=== PATIENT | female | born 1965 | race Caucasian/White ===

== ENCOUNTER 2017-02-24 08:31 | Emergency (ER) | payer OTHER ==
--- NOTE | ~2017-02-24 | ER ---
[facility] AGE[facility] 51 Y [address] ROOM: [place] [address] LOCATION: ED ADMIT DATE: 02/24/2017 ER/Outpatient Report DISCHARGE DATE: 02/24/2017 FAMILY PHYSICIAN: Elaine Ronquillo APRN ATTENDING PHYSICIAN: Suzi Choudhury Time of Arrival: 0831 hours. Time of Evaluation/Seen: 0839 hours. IDENTIFICATION: A 51-year-old female. CHIEF COMPLAINT: Rapid heart rate. HISTORY OF PRESENT ILLNESS: The patient complains of a rapid heart rate which sometimes happens to her and she just takes an extra dose of her metoprolol, but today she had a rapid heart rate around 6:30 a.m., after she woke up and then had "body numbness." She said her arms and legs felt numb and she was a little bit dizzy. No chest pain. Some shortness of breath. No cough. No other problems or concerns. The rapid heart rate has relieved, but she says she just does not feel quite right. She has been under lot of stress for the last year and a half. PAST MEDICAL HISTORY: ALLERGIES: NO KNOWN DRUG ALLERGIES. CURRENT MEDICATIONS: 1. Metoprolol. 2. Lasix. 3. Synthroid. MEDICAL PROBLEMS: 1. Rapid heart rate. 2. Hypothyroidism. PAST SURGICAL HISTORY: Prior Surgeries: 1. Varicose vein surgery. 2. Bilateral knee surgery. 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 Tobacco use, 1 pack PATIENT'S NAME: [facility]IK [facility] Lucien [facility] AGE: 51 Y [address] ROOM: [place] [address] LOCATION: [facility] ADMIT DATE: 02/24/2017 ER/Outpatient Report DISCHARGE DATE: 02/24/2017 FAMILY PHYSICIAN: Elaine Ronquillo APRN ATTENDING PHYSICIAN: Suzi Choudhury per day. Alcohol use, 1 to 6 beers on 2 to 3 nights a week. Drug use, denies. The patient is . Her is paraplegic. FAMILY HISTORY: No family history of premature coronary artery disease. REVIEW OF SYSTEMS: All systems reviewed and negative other than what is noted in the HPI. She is no longer having periods. PHYSICAL EXAMINATION: VITAL SIGNS: Weight 56.8 kg. Blood pressure 133/97, pulse 99, respiratory rate is 20, temperature 98.0, and saturations 97% on room air. GENERAL: A 51-year-old female, in no acute distress, but appears somewhat anxious. HEENT: Head; normocephalic and atraumatic. Ears; TMs translucent in both ears. Eyes; pupils equal and reactive to light and accommodation. Extraocular movements intact. Nose; mucosa pink. No lesions or drainage. Mouth; no lesions. Pharynx, benign. NECK: Supple. No lymphadenopathy. LUNGS: Clear to auscultation. Breath sounds are equal. HEART: Regular rate and rhythm. No murmur, rub, or gallop. ABDOMEN: Bowel sounds present. Soft, nondistended, and nontender. SKIN: [place], warm, and dry. No lesions or rashes noted. NEUROLOGIC: The patient is alert and oriented x4. Cranial nerves 2 through 12 grossly intact. Motor strength 5/5 throughout. Sensation is intact to light touch. EXTREMITIES: No lower extremity edema. No calf tenderness. LABORATORY DATA AND IMAGING STUDIES: A 12-lead EKG at 0836 hours was normal sinus rhythm, but had some limb leads reversed. We repeated at 0839 hours, normal sinus rhythm at 87 beats per minute. No acute ST elevation or depression. Repeat EKG at 1033 hours, sinus bradycardia at 59 beats per minute. No acute ST elevation or depression. Chest x-ray, one view, no acute process. Pending Radiology over-read. Head CT without contrast, negative per Radiology. Chemistry panel, unremarkable. Magnesium, alcohol level, and cardiac enzymes are negative. TSH is slightly elevated at 4.730. The patient states she just had her thyroid checked in the clinic, and no adjustments were made on her Synthroid, and she is not certain of her dose. CBC is unremarkable. D-dimer is normal. Second set of cardiac enzymes at 90 minutes are negative. IMPRESSION: Palpitations. PATIENT'S NAME: MILENA MONTANEZ [facility] AGE: 51 Y [address] ROOM: [place] [address] LOCATION: ED ADMIT DATE: 02/24/2017 ER/Outpatient Report DISCHARGE DATE: 02/24/2017 FAMILY PHYSICIAN: Elaine Ronquillo APRN ATTENDING PHYSICIAN: Suzi Choudhury PLAN: 1. Recommended a 48-hour Holter monitor. The patient refused. She will go home to rest, fluids. No exertion. No caffeine, and follow up in [facility] on Sunday. 2. Numbness may be secondary to hyperventilation. The patient's neurological exam is normal on exam and head CT is negative. We did check orthostatic blood pressures which were normal. No orthostatic hypotension. 3. Elevated TSH. I told the patient to follow up with Elaine Ronquillo APRN regarding any necessary adjustment to her Synthroid. The patient understands and agrees, and all questions have been answered. MD KINZA SINGH/zoel /[id number] d: 02/24/17 1739 t: 03/05/17 0757, OUTPATIENT REPORT
[2017-02-24 09:04] LABS: BASOPHIL # 0.1 K/uL (0.0-0.2); BASOPHIL % 1.2 %; EOSINOPHIL # 0.2 K/uL (0.0-0.5); EOSINOPHIL % 2.3 %; HEMATOCRIT 42.6 % (33.0-46.0); HEMOGLOBIN 15.2 g/dL (10.0-15.0); IMMATURE GRANULOCYTE % 0.3 %; LYMPHOCYTE # 2.3 K/uL (0.8-4.0); LYMPHOCYTE % 22.5 %; MCH 35.1 pg (27.0-34.0); MCHC 35.7 gm/dL (32.0-36.5); MCV 98.4 fl (83.0-98.0); MONOCYTE # 0.5 K/uL (0.0-1.0); MONOCYTE % 4.6 %; MPV 9.2 fl (9.4-12.4); NEUTROPHIL # (ANC) 7.2 K/uL (1.8-7.8); NEUTROPHIL % 69.1 %; NRBC % 0 /100WBC (0-0.00); PLATELET COUNT 315 K/uL (150-450); RBC 4.33 M/uL (3.50-5.50); RDW-CV 12.9 % (11.9-14.6); WBC 10.4 K/uL (4.0-11.0)
[2017-02-24 09:13] LABS: INR - (THERAPEUTIC) 0.92 (0.92-1.07); PROTIME 9.7 SECONDS (9.8-11.4); PTT 27 SECONDS (25-32)
[2017-02-24 09:24] LABS: ALBUMIN 4.1 gm/dL (3.5-5.0); ALK PHOS 67 IU/L (33-138); ALT 29 IU/L (12-78); ANION GAP 12.8 (10.0-19.0); AST 24 IU/L (10-40); BLOOD UREA NITROGEN 21 mg/dL (6-24); CALCIUM 8.7 mg/dL (8.5-10.5); CHLORIDE 104 mMol/L (96-110); CO2 27 mMol/L (22-32); CPK 125 IU/L (21-215); CREATININE 1.1 mg/dL (0.5-1.1); MAGNESIUM 2.2 mg/dL (1.8-2.6); POTASSIUM 3.8 mMol/L (3.7-5.1); SODIUM 140 mMol/L (135-145); TOTAL BILIRUBIN 0.4 mg/dL (0.0-1.5); TOTAL PROTEIN 7.5 g/dL (6.0-8.4)
[2017-02-24 11:09] LABS: CPK 135 IU/L (21-215)
== END 2017-02-24 11:15 | disposition disaster alternative care site (69) ==
LOC: GMED 08:31
PROVIDERS: Family Medicine
DX: R00.2 Palpitations (principal); E03.9 Hypothyroidism, unspecified; R00.1 Bradycardia, unspecified; F17.210 Nicotine dependence, cigarettes, uncomplicated; Z79.899 Other long term (current) drug therapy
CPT/HCPCS: G0480

== ENCOUNTER → 2017-03-28 | Outpatient (CLI) | payer OTHER ==
--- NOTE | ~2017-03-28 | ESTC ---
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 Risk Factors The patient risk factors include:physical activity, Current/Recent(w/in 1 year) tobacco use and treated hypertension. Conclusions Impression ECG portion of exercise stress test is clinically negative for ischemia by diagnostic criteria. Patient exercised according to the John protocol for 10.10 minutes and reached 90% of MPHR, and 12 METS. Test terminated due to dyspnea at peak stress. Myocardial perfusion imaging is normal. Overall left ventricular systolic function was normal without regional wall motion abnormalities. Calculated LVEF is 56% and TID ratio is 1.05. Stress Protocols Resting ECG NSR Resting HR:68 bpm Resting BP:123/69 mmHg Pre-stress physical exam: Patient assessed by Dr. Newman prior to testing. Stress Protocol:Exercise Peak HR:142 bpm HR/BP product:[id number] Peak BP:160/70 mmHg Predicted HR: 166 bpm % of predicted HR: 86 Reason for termination:Completed ECG Findings No ECG changes suggestive of ischemia. Arrhythmias No rhythm abnormality. Symptoms Fatigue. Complications Procedure complication: None. Stress Interpretation The electrocardiographic portion of the stress test was negative for ischemia. Blood pressure response was normal, heart rate response was normal for exertion. The Suggs Treadmill Score was 5. This corresponds to a low risk stress test. Imaging Results Summed scores - Summed stress score: 2 - Summed rest score: 4 - Summed difference score: -2 Stress ejection Ejection fraction:56 % EDV :97 ml ESV :43 ml Stroke volume :54 ml LV mass :140 gr Imaging Protocols Rest Stress Isotope:Tc99m Sestamibi IV Isotope: Tc99m Sestamibi IV Isotope dose:11.3 mCi Isotope dose:34.2 mCi Date:03/28/2017 07:30 Date:03/28/2017 09:00 Technique: SPECT Technique: Gated Supine SPECT Supine Scan Time:45-60 minutes post Scan Time:15-30 minutes post injection injection Medical History Admission Data Admission date: 03/28/2017 Admission Time: 07:17 Hospital Status: Outpatient. Signatures dtt: [place] URIOSTEGUI dtd: 03/28/17 0843 Physician Self Edit
== END | disposition disaster alternative care site (69) ==
LOC: GRAD 07:15
DX: R07.89 Other chest pain (principal); R00.2 Palpitations; F17.210 Nicotine dependence, cigarettes, uncomplicated; I47.1 Supraventricular tachycardia; R06.00 Dyspnea, unspecified; Z71.6 Tobacco abuse counseling; Z86.79 Personal history of other diseases of the circulatory system; Z82.49 Family history of ischemic heart disease and other diseases of the circulatory system
CPT/HCPCS: A9500